=== PATIENT | male | born 1980 | race Caucasian/White ===

== ENCOUNTER → 2017-07-16 | Outpatient (CLI) | payer OTHER | END | disposition home or self-care (01) | LOC: CFH 07:39 | PROVIDERS: ATTEND Internal Medicine Gastroenterology | DX: K64.8 Other hemorrhoids (principal); Z86.010 Personal history of colon polyps | CPT/HCPCS: 76700 ==

== ENCOUNTER → 2017-07-16 | Outpatient (CLI) | payer OTHER | END | disposition home or self-care (01) | LOC: PETCFH 07:35 | PROVIDERS: ATTEND Internal Medicine Gastroenterology | DX: K64.8 Other hemorrhoids (principal); Z86.010 Personal history of colon polyps | CPT/HCPCS: 78264; A9541 ==